=== PATIENT | female | born 1950 | race Caucasian/White ===

== ENCOUNTER 2023-02-17 11:08 | Emergency (ER) | payer BC, MEDICAID ==
[~2023-02-17] VITALS: Ht 162.6 cm; Wt 78.1 kg
[2023-02-17 11:46] VITALS: BP 151/73
[2023-02-17] MEDS ORDERED: IBUP-2028 PO (12:57)
== END 2023-02-17 13:31 | disposition home or self-care (01) ==
LOC: ER 11:08
DX: M17.0 Bilateral primary osteoarthritis of knee (principal)
CPT/HCPCS: 73560; 99283